=== PATIENT | female | born 1995 | race African-American/Black ===

== ENCOUNTER 2019-04-22 15:01 | Inpatient (IN) ==
[2019-04-22 16:28] LABS: Apearance,Urine CLEAR (Clear); Bilirubin,Urine Negative (Negative); Blood, Urine Negative (Negative); Glucose,Urine (UA) Negative (Negative); Ketones,Urine 80 mg/dL (Negative); Mucus,Urine Occasional /LPF (Occasional); Nitrite,Urine Negative (Negative); Protein,Urine Negative; RBC,Urine <1 /HPF (0-4); Sperm,Urine Occasional /HPF (Negative); Squamous Epithelial Cell,Urine Occasional /HPF (0-10); Urine Color Yellow (Yellow); Urine Specific Gravity 1.013 (1.001-1.035); WBC,Urine 1 /HPF (0-6)
[2019-04-22] MEDS: LACTATED RINGERS 1,000 ML IV SCH (17:25)
[2019-04-23] MEDS ORDERED: CITRIC ACID/SODIUM CITRATE 30 ML UDCUP PO ONE (05:40)
[2019-04-23] MEDS ORDERED: CLINDAMYCIN INJ 900 MG in PREMIX 1 EACH IV ONE (05:40)
[2019-04-23] MEDS ORDERED: FAMOTIDINE 20 MG/2 ML VIAL IV ONE (05:43)
[2019-04-23 06:17] LABS: Basophils % 0.2 % (0.0-0.8); Eosinophils % 0.8 % (0.00-10.9); Hematocrit 27.4 VOL% (35.7-47.0); Hemoglobin 8.6 GM/DL (12.0-16.0); Immature Granulocytes % 0.8 %; Immature Granulocytes Absolute 0.04 #; Lymphocytes # 1.6 10*3/uL (1.4-4.0); Lymphocytes % 31.5 % (21.3-54.2); Mean Corpuscular HGB Conc 31.4 GM/DL (32-36); Mean Corpuscular Volume 88.7 FL (87-102); Mean Platelet Volume 13.7 FL (9.6-12.0); Neutrophils % 54.7 % (38.7-73.9); Platelet Count 132 T/CUMM (130-400); Red Blood Count 3.09 MC/CUMM (3.8-5.5); Red Cell Distribution Width 13.6 % (9.3-17.3); White Blood Count 4.9 T/CUMM (4-12)
[2019-04-23 06:48] LABS: Albumin 2.2 G/DL (3.4-5.0); Bilirubin,Total 0.4 MG/DL (0.2-1.0); Calcium 8.9 MG/DL (8.5-10.1); Osmolality,Calculated 278.1 MOS/KG (273-304); Total Protein 6.2 G/DL (6.4-8.3)
[2019-04-23] MEDS ORDERED: ONDANSETRON 4 MG/2 ML VIAL IV PRN ×2 (07:17→10:11)
[2019-04-23] MEDS ORDERED: EPINEPHrine 1 MG/ML VIAL ONE (07:40)
[2019-04-23] MEDS ORDERED: DEXAMETHASONE 4 MG/1 ML VIAL ONE (07:40)
[2019-04-23] MEDS ORDERED: OXYTOCIN 10 UNIT/ML VIAL IM ONE (07:53)
[2019-04-23] MEDS ORDERED: OXYTOCIN/LR 30 UNIT/1,000 ML BAG IV ONE (07:53)
[2019-04-23] MEDS ORDERED: CARBOPROST TROMETHAMINE 250 MCG/ML AMP IM ONE (08:11)
[2019-04-23] MEDS ORDERED: METHYLERGONOVINE 0.2 MG/1 ML AMP ONE (08:11)
[2019-04-23] MEDS ORDERED: miSOPROStol 200 MCG TABLET ONE (08:11)
[2019-04-23] MEDS: LACTATED RINGERS 1,000 ML IV SCH (08:35)
[2019-04-23] MEDS ORDERED: SODIUM CHLORIDE 0.9% 1,000 ML IV PRN (09:11)
[2019-04-23 09:56] LABS: Cord Venous Blood HCO3 23.2 MMOL/L; Cord Venous Blood PCO2 40.6 MMHG; Cord Venous Blood PO2 30.2 MMHG
[2019-04-23] MEDS ORDERED: ACETAMINOPHEN 325 MG TABLET PO PRN (10:11)
[2019-04-23] MEDS ORDERED: SIMETHICONE CHEW 80 MG TABLET PO PRN (10:11)
[2019-04-23] MEDS ORDERED: RHO(D) IMMUNE GLOBULIN 300 MCG SYRINGE IM ONE (10:11)
[2019-04-23] MEDS ORDERED: OXYTOCIN/LR 20 UNIT/1,000 ML BAG IV ONE (10:11)
[2019-04-23 10:18] LABS: Apearance,Urine CLEAR (Clear); Bilirubin,Urine Negative (Negative); Blood, Urine Negative (Negative); Glucose,Urine (UA) Negative (Negative); Ketones,Urine 80 mg/dL (Negative); Mucus,Urine Few /LPF (Occasional); Nitrite,Urine Negative (Negative); Protein,Urine 30 MG/DL; RBC,Urine 1 /HPF (0-4); Squamous Epithelial Cell,Urine Occasional /HPF (0-10); Urine Color Amber (Yellow); Urine Specific Gravity 1.023 (1.001-1.035); WBC,Urine 2 /HPF (0-6)
[2019-04-23] MEDS ORDERED: LACTATED RINGERS 1,000 ML IV SCH ×2 (10:30→18:30)
[2019-04-23] MEDS ORDERED: ceFAZolin 1,000 MG in SYRINGE 1 EACH IV SCH (10:30)
[2019-04-23] MEDS ORDERED: BUPIVACAINE 0.25% 50 ML VIAL ONE (10:33)
[2019-04-23] MEDS ORDERED: PHENYLEPHRINE 1 MG/10 ML SYRINGE IV ONE (10:33)
[2019-04-23] MEDS ORDERED: MORPHINE 10 MG/10 ML VIAL ONE (10:34)
[2019-04-23] MEDS ORDERED: BUPIVACAINE SPINAL 0.75% 2 ML AMP SPINAL ONE (10:35)
[2019-04-23] MEDS ORDERED: PROMETHAZINE 25 MG/1 ML VIAL IM PRN (14:22)
[2019-04-23] MEDS: CLINDAMYCIN INJ 900 MG in PREMIX 1 EACH IV SCH (18:11)
[2019-04-23 19:36] LABS: Basophils % 0.1 % (0.0-0.8); Hematocrit 32.6 VOL% (35.7-47.0); Immature Granulocytes % 0.4 %; Immature Granulocytes Absolute 0.05 #; Lymphocytes # 0.7 10*3/uL (1.4-4.0); Lymphocytes % 6.1 % (21.3-54.2); Mean Corpuscular HGB Conc 32.8 GM/DL (32-36); Mean Corpuscular Volume 86.9 FL (87-102); Mean Platelet Volume 13.6 FL (9.6-12.0); Monocytes % 6.7 % (1.7-12.7); Neutrophils % 86.7 % (38.7-73.9); Platelet Count 141 T/CUMM (130-400); Red Blood Count 3.75 MC/CUMM (3.8-5.5); Red Cell Distribution Width 13.6 % (9.3-17.3)
[2019-04-23 19:38] LABS: Hemoglobin 10.7 GM/DL (12.0-16.0)
[2019-04-23] MEDS ORDERED: diphenhydrAMINE CAP 25 MG CAPSULE PO PRN (22:50)
[2019-04-24] MEDS: CLINDAMYCIN INJ 900 MG in PREMIX 1 EACH IV SCH (01:10)
[2019-04-24 03:23] LABS: Basophils % 0.2 % (0.0-0.8); Hematocrit 31.2 VOL% (35.7-47.0); Immature Granulocytes % 0.7 %; Immature Granulocytes Absolute 0.09 #; Lymphocytes # 1.8 10*3/uL (1.4-4.0); Lymphocytes % 13.6 % (21.3-54.2); Mean Corpuscular HGB Conc 32.1 GM/DL (32-36); Mean Corpuscular Volume 86.9 FL (87-102); Mean Platelet Volume 14.3 FL (9.6-12.0); Monocytes % 9.9 % (1.7-12.7); Neutrophils % 75.6 % (38.7-73.9); Platelet Count 135 T/CUMM (130-400); Red Blood Count 3.59 MC/CUMM (3.8-5.5); Red Cell Distribution Width 13.5 % (9.3-17.3)
[2019-04-24] MEDS: METOCLOPRAMIDE 10 MG TABLET PO SCH ×2 (08:40→16:45)
[2019-04-24] MEDS: DOCUSATE SODIUM 100 MG CAPSULE PO SCH ×3 (08:40→21:54)
[2019-04-24] MEDS: MAGNESIUM HYDROXIDE SUSP 30 ML UDCUP PO PRN (08:40)
[2019-04-24] MEDS: MULTIVITAMIN (PRENATAL) TABLET PO SCH (08:41)
[2019-04-24] MEDS: IBUPROFEN 800 MG TABLET PO PRN (21:52)
[2019-04-25] MEDS: METOCLOPRAMIDE 10 MG TABLET PO SCH ×3 (01:31→16:24)
[2019-04-25] MEDS: DOCUSATE SODIUM 100 MG CAPSULE PO SCH (08:28)
[2019-04-25] MEDS: MULTIVITAMIN (PRENATAL) TABLET PO SCH (08:28)
[2019-04-25] MEDS: MAGNESIUM HYDROXIDE SUSP 30 ML UDCUP PO PRN (08:31)
[2019-04-25] MEDS: IBUPROFEN 800 MG TABLET PO PRN (11:10)
[2019-04-25] MEDS ORDERED: DIPH/TET/ACEL PERT BOOSTER VACCINE 0.5 ML VIAL IM ONE (12:00)
[2019-04-25 12:08] VITALS: BP 110/63
== END 2019-04-25 15:50 | disposition home or self-care (01) | DRG 788 ==
LOC: N.LDOUT 15:01 → N.LD 15:11 → N.OB 04-23 13:06
PROVIDERS: ADMIT Obstetrics & Gynecology; ATTEND Obstetrics & Gynecology
PROC: LDCSECT (ICD-10-PCS; 2019-04-23 09:00)

== ENCOUNTER 2020-12-19 11:14 | Inpatient (IN) ==
[2020-12-19] MEDS: LACTATED RINGERS 1,000 ML IV PRN ×2 (12:00→14:29)
[2020-12-19] MEDS ORDERED: CITRIC ACID/SODIUM CITRATE 30 ML UDCUP PO ONE (12:15)
[2020-12-19] MEDS ORDERED: CLINDAMYCIN INJ 900 MG in PREMIX 1 EACH IV ONE (12:15)
[2020-12-19] MEDS ORDERED: FAMOTIDINE 20 MG/2 ML VIAL IV ONE (12:15)
[2020-12-19] MEDS ORDERED: OXYTOCIN 10 UNIT/ML VIAL IM ONE (12:18)
[2020-12-19] MEDS ORDERED: OXYTOCIN/LR 30 UNIT/1,000 ML BAG IV ONE (12:18)
[2020-12-19 12:37] LABS: Basophils % 0.2 % (0.0-0.8); Eosinophils % 0.7 % (0.00-10.9); Hematocrit 32.1 VOL% (35.7-47.0); Hemoglobin 10.3 GM/DL (12.0-16.0); Immature Granulocytes % 0.6 %; Immature Granulocytes Absolute 0.03 #; Lymphocytes # 1.4 10*3/uL (1.4-4.0); Lymphocytes % 26.9 % (21.3-54.2); Mean Corpuscular HGB Conc 32.1 GM/DL (32-36); Mean Corpuscular Volume 89.2 FL (87-102); Mean Platelet Volume 11.9 FL (9.6-12.0); Monocytes % 10.4 % (1.7-12.7); Neutrophils % 61.2 % (38.7-73.9); Platelet Count 208 T/CUMM (130-400); Red Cell Distribution Width 13.7 % (9.3-17.3); White Blood Count 5.4 T/CUMM (4-12)
[2020-12-19 13:00] LABS: Alanine Aminotransferase 17 U/L (13-56); Albumin 2.8 G/DL (3.4-5.0); Alkaline Phosphatase 177 U/L (45-117); Aspartate Amino Transferase 19 U/L (0-37); Bilirubin,Total < 0.39 MG/DL (0.2-1.0); Blood Urea Nitrogen 7 MG/DL (7-18); Carbon Dioxide 22 MMOL/L (21-32); Estimated Glom Filtration Rate 202 ML/MIN; Glucose 72 MG/DL (74-106); Potassium 3.6 MMOL/L (3.5-5.1); Sodium 136 MMOL/L (136-145); Total Protein 7.6 G/DL (6.4-8.2)
[2020-12-19 13:06] LABS: Lymphocytes 26 % (20-55); Segmented Neutrophils 64 % (50-85); Total Cells Counted 100
[2020-12-19 13:08] LABS: Atypical Lymphocytes Few; Hypochromasia Slight; Platelet Estimate Normal
[2020-12-19 13:09] LABS: Microcytosis Slight
[2020-12-19] MEDS ORDERED: METHYLERGONOVINE 0.2 MG/1 ML AMP ONE (15:13)
[2020-12-19] MEDS ORDERED: miSOPROStoL 200 MCG TABLET ONE (15:13)
[2020-12-19] MEDS ORDERED: OXYTOCIN/LR 20 UNIT/1,000 ML BAG IV ONE ×2 (15:13→16:25)
[2020-12-19] MEDS ORDERED: CARBOPROST TROMETHAMINE 250 MCG/ML AMP IM ONE (15:13)
[2020-12-19] MEDS ORDERED: ONDANSETRON 4 MG/2 ML VIAL ONE ×2 (15:39)
[2020-12-19] MEDS ORDERED: PHENYLEPHRINE 1 MG/10 ML SYRINGE IV ONE (15:40)
[2020-12-19] MEDS ORDERED: TRIAMCINOLONE ACETONIDE 40 MG/1 ML VIAL ONE ×2 (15:44→16:08)
[2020-12-19 16:20] LABS: Cord Venous Blood HCO3 22.9 MMOL/L; Cord Venous Blood PCO2 40.1 MMHG; Cord Venous Blood PO2 46.4 MMHG
[2020-12-19] MEDS ORDERED: ONDANSETRON 4 MG/2 ML VIAL IV PRN (16:25)
[2020-12-19] MEDS ORDERED: SIMETHICONE CHEW 80 MG TABLET PO PRN (16:25)
[2020-12-19] MEDS ORDERED: RHO(D) IMMUNE GLOBULIN 300 MCG SYRINGE IM ONE (16:25)
[2020-12-19] MEDS ORDERED: ACETAMINOPHEN 325 MG TABLET PO PRN (16:25)
[2020-12-19] MEDS ORDERED: LACTATED RINGERS 1,000 ML IV SCH (16:30)
[2020-12-19] MEDS ORDERED: TRIAMCINOLONE ACETONIDE 40 MG/1 ML VIAL IM ONE (16:37)
[2020-12-19 16:48] LABS: Bilirubin,Urine Negative (Negative); Blood, Urine Negative (Negative); Glucose,Urine (UA) Negative (Negative); Ketones,Urine 80 mg/dL (Negative); Mucus,Urine Occasional /LPF (Occasional); Nitrite,Urine Negative (Negative); Protein,Urine Negative; RBC,Urine 4 /HPF (0-4); Squamous Epithelial Cell,Urine Occasional /HPF (0-10); Urine Appearance CLEAR (Clear); Urine Color Yellow (Yellow); Urine Specific Gravity 1.014 (1.001-1.035); WBC,Urine 2 /HPF (0-6)
[2020-12-19] MEDS: ACETAMINOPHEN 500 MG TABLET PO SCH ×2 (17:12→22:36)
[2020-12-19] MEDS: KETOROLAC 30 MG/1 ML VIAL IV SCH (17:14)
[2020-12-19] MEDS: IBUPROFEN 800 MG TABLET PO PRN (20:05)
[2020-12-19] MEDS: DOCUSATE SODIUM 100 MG CAPSULE PO SCH (21:25)
[2020-12-20] MEDS: CLINDAMYCIN INJ 900 MG in PREMIX 1 EACH IV SCH ×2 (00:41→07:46)
[2020-12-20 01:10] LABS: Basophils % 0.2 % (0.0-0.8); Hematocrit 30.7 VOL% (35.7-47.0); Hemoglobin 9.7 GM/DL (12.0-16.0); Immature Granulocytes % 0.5 %; Immature Granulocytes Absolute 0.04 #; Lymphocytes % 11.8 % (21.3-54.2); Mean Corpuscular HGB Conc 31.6 GM/DL (32-36); Mean Platelet Volume 11.3 FL (9.6-12.0); Monocytes % 7.8 % (1.7-12.7); Neutrophils % 79.7 % (38.7-73.9); Platelet Count 208 T/CUMM (130-400); Red Blood Count 3.41 MC/CUMM (3.8-5.5); Red Cell Distribution Width 13.5 % (9.3-17.3); White Blood Count 8.3 T/CUMM (4-12)
[2020-12-20] MEDS: KETOROLAC 30 MG/1 ML VIAL IV SCH ×2 (01:30→09:21)
[2020-12-20] MEDS: ACETAMINOPHEN 500 MG TABLET PO SCH (06:25)
[2020-12-20] MEDS: FERROUS SULFATE 325 MG TABLET PO SCH ×2 (07:45→09:21)
[2020-12-20] MEDS: DOCUSATE SODIUM 100 MG CAPSULE PO SCH ×3 (07:45→20:43)
[2020-12-20] MEDS: METOCLOPRAMIDE 10 MG TABLET PO SCH ×2 (07:45→15:52)
[2020-12-20] MEDS: MULTIVITAMIN (PRENATAL) TABLET PO SCH (07:45)
[2020-12-20] MEDS: MAGNESIUM HYDROXIDE SUSP 30 ML UDCUP PO PRN ×2 (07:46→20:43)
[2020-12-20 08:22] LABS: Basophils % 0.1 % (0.0-0.8); Eosinophils % 0.1 % (0.00-10.9); Hematocrit 28.7 VOL% (35.7-47.0); Hemoglobin 9.2 GM/DL (12.0-16.0); Immature Granulocytes % 0.6 %; Immature Granulocytes Absolute 0.06 #; Lymphocytes # 0.9 10*3/uL (1.4-4.0); Lymphocytes % 9.4 % (21.3-54.2); Mean Corpuscular HGB Conc 32.1 GM/DL (32-36); Mean Corpuscular Volume 88.6 FL (87-102); Mean Platelet Volume 11.8 FL (9.6-12.0); Monocytes % 8.8 % (1.7-12.7); Platelet Count 201 T/CUMM (130-400); Red Blood Count 3.24 MC/CUMM (3.8-5.5); Red Cell Distribution Width 13.4 % (9.3-17.3); White Blood Count 9.7 T/CUMM (4-12)
[2020-12-20] MEDS ORDERED: RHO(D) IMMUNE GLOBULIN 300 MCG SYRINGE IM ONE (11:00)
[2020-12-20] MEDS: IBUPROFEN 800 MG TABLET PO PRN (13:22)
[2020-12-21] MEDS: METOCLOPRAMIDE 10 MG TABLET PO SCH ×2 (00:35→13:01)
[2020-12-21 07:34] VITALS: BP 107/67
[2020-12-21] MEDS: FERROUS SULFATE 325 MG TABLET PO SCH (08:53)
[2020-12-21] MEDS: MULTIVITAMIN (PRENATAL) TABLET PO SCH (08:53)
[2020-12-21] MEDS: DOCUSATE SODIUM 100 MG CAPSULE PO SCH (08:53)
== END 2020-12-21 12:15 | disposition home or self-care (01) | DRG 540 ==
LOC: N.LD 11:14 → N.OB 21:25
PROVIDERS: ADMIT Obstetrics & Gynecology; ATTEND Obstetrics & Gynecology
PROC: LDCSECT (ICD-10-PCS; 2020-12-19 13:15)